=== PATIENT | male | born 1945 | race Two or more races ===

== ENCOUNTER 2018-09-10 10:37 | Emergency (ER) | payer OTHER ==
[~2018-09-10] VITALS: Ht 182.9 cm; Wt 102.9 kg
[2018-09-10 12:00] VITALS: BP 136/81
== END 2018-09-10 12:12 | disposition home or self-care (01) ==
LOC: ED 12:00
DX: G51.0 Bell's palsy (principal); E78.00 Pure hypercholesterolemia, unspecified
CPT/HCPCS: 99283